=== PATIENT | female | born 1995 | race Caucasian/White ===

== ENCOUNTER 2021-11-23 20:59 | Emergency (ER) | payer OTHER ==
[~2021-11-23] VITALS: Ht 166.4 cm; Wt 62.0 kg
--- NOTE | 2021-11-23 21:54 | PHYS DOC ---
Adult General Chief Complaint Chief Complaint: GENERALIZED BODY ACHES HPI HPI Patient is a 26-year-old female with a past medical history of recent ureterolithiasis, which had to be removed last week who presents with a chief complaint of left flank pain which started earlier today, 7 out of 10, sharp in nature with some nausea. Denies any other recent traumas, travels, illness, fevers, chest pain. Denies any dysuria, hematuria, blood in the stool or diarrhea. Review of Systems Review of Systems Review of systems otherwise unremarkable except noted in HPI Physical Exam Physical Exam Constitutional: Well developed, well nourished, no acute distress, non-toxic appearance. [] HENT: Normocephalic, atraumatic, oropharynx moist, Eyes: conjunctiva normal, no discharge. [] Neck: Normal range of motion, no tenderness, supple, no stridor. [] Cardiovascular:Heart rate regular rhythm, no murmur [] Lungs & Thorax: Bilateral breath sounds clear to auscultation [] Abdomen: soft, no tenderness, no masses, no pulsatile masses. [] Skin: Warm, dry, no erythema, no rash. [] Back: Left CVA tenderness. [] Extremities: No tenderness, no cyanosis, no clubbing, ROM intact, no edema. [] Neurologic: Alert and oriented X 3, no focal deficits noted. [] Psychologic: Affect normal, judgement normal, mood normal. [] EKG EKG [] Radiology/Procedures Radiology/Procedures [] Heart Score C/O Chest Pain: No Risk Factors: Risk Factors: DM, Current or recent (<one month) smoker, HTN, HLP, family history of CAD, obesity. Risk Scores: Risk Factors: DM, Current or recent (<one month) smoker, HTN, HLP, family history of CAD, obesity. Course & Med Decision Making Course & Med Decision Making Patient is a 26-year-old female presents with left flank pain, status post ureterolithiasis last week Vital signs notable for tachycardia and hypertension. Physical exam noted above. Given pain and nausea medicine. Laboratory analysi/urinalysis notable for leukocytosis and urinalysis with possibility of urinary tract infection. Given patient's history started on antibiotics for UTI. Discussed all findings with family. Discussed symptom management at home with pain medicines, nausea medicine and diet/hydration Advised to call their surgeons on-call service to make them aware of their visit and relay the information to their surgeon. Advised to call again first thing Friday morning if they do not hear anything to update on ED visit and set up a follow-up as soon as possible. Gave strict return precautions to the ED. Patient grateful, verbalized understanding and agreed with plan of discharge. [] Dragon Disclaimer Dragon Disclaimer This electronic medical record was generated, in whole or in part, using a voice recognition dictation system. Departure Departure: Impression: Primary Impression: Flank pain Additional Impression: Urinary tract infection Disposition: HOME / SELF CARE / HOMELESS Condition: STABLE Referrals: MARTITA RAUSCH MD (PCP) Patient Instructions: Flank Pain, Urinary Tract Infection Additional Instructions: Thank you for coming into the emergency department tonight and allowing us to take care of you. Please read the attached information carefully to go over things we discussed. Please be sure to take your antibiotics as prescribed and until gone unless otherwise directed by your urologist. Please take your nausea medicine as prescribed over the next couple of days. Please be sure to eat a light clear diet and drink plenty of fluids. It is very important that she get a hold of the surgeon/urologist that did your procedure and make them aware of your ER visit to see if anything else they would like done. Although it is the weekend, they usually have a service that can take a message and relay this to the surgeon. Please take your pain medicine as prescribed as well. Please add ibuprofen, 600 mg every 6 hours. As we discussed, go to the emergency departmen t immediately if you have any of the new or concerning symptoms we talked about. Scripts Ondansetron (ONDANSETRON ODT) 8 Mg Tab.rapdis 8 MG PO Q8HRS for nausea for 7 Days, #21 TAB Prov: LISA GRAY MD 11/23/21 Hydrocodone Bit/Acetaminophen (HYDROCODONE-APAP 5-325 ) 1 Each Tablet 1 TAB PO Q4DAYS PRN for abdominal pain for 7 Days, #20 TAB 0 Refills Prov: LISA GRYA MD 11/23/21 Problem Qualifiers LISA GRAY MD Nov 23, 2021 21:54
[2021-11-23] MEDS ORDERED: ONDANSETRON ODT 4 MG TAB.RAPDIS PO ONE (22:00)
--- NOTE | 2021-11-23 22:17 | RAD ---
Exam: CT of abdomen and pelvis without contrast INDICATION: Left flank pain, history of left kidney stone. Stone removal 11/19/2021 TECHNIQUE: Sequential axial images through the abdomen and pelvis obtained without IV contrast. Sagit ashwini and coronal reformatted images were reconstructed from the axial data and reviewed. Exposure: One or more of the following in the visualized dose reduction techniques were utilized for this examination: 1. Automated exposure control 2. Adjustment of the MA and/or KV according to patient size 3. Use of iterative of reconstructive technique Comparisons: None FINDINGS: Heart size is normal. No pericardial effusion. Visualized lung bases are clear pleural effusion. Evaluation of solid organs limited secondary to noncontrast technique. Liver, spleen, pancreas, gallbladder and adrenals are unremarkable. There is mild left-sided hydronephrosis. There is a cyst at the upper pole of the left kidney with a internal calcified nodule. There is hydroureter down to level the distal ureter without a discrete ur eteral calculus identified. Bladder is partially distended and not well evaluated. Uterus not enlarged. No abnormal adnexal mass. Large and small bowel are unremarkable. Appendix is normal. No free intra-abdominal air or fluid. No obstruction. Abdominal aorta has a normal course and caliber. No enlarged intra-abdominal lymph nodes are identified. No suspicious osseous lesions or acute fractures. IMPRESSION: 1. Mild left-sided hydronephrosis and hydroureter down to level the distal ureter. No ureteral calcu nelly is identified. Findings could relate to stricture. 2. Cystic lesion at the upper pole of the left kidney with a internal calcified nodule incompletely characterized on this study. Electronically signed by: Uzma Courtney MD (11/23/2021 10:14 PM) [facility]
[2021-11-23 23:05] LABS: CALCIUM 9.2 mg/dL (8.5-10.1); CREATININE 0.7 mg/dL (0.6-1.0); POTASSIUM 3.8 mmol/L (3.5-5.1)
[2021-11-23 23:09] LABS: BASO # 0.1 x10^3/uL (0.0-0.2); BASO % 1 % (0-3); EOS % 0 % (0-3); HEMATOCRIT 42.7 % (36.0-47.0); HEMOGLOBIN 14.1 g/dL (12.0-15.5); LYMPH # 1.2 x10^3/uL (1.0-4.8); LYMPH % 11 % (24-48); MEAN CORPUSCULAR HEMOGLOBIN 30 pg (25-35); MEAN CORPUSCULAR HGB CONC 33 g/dL (31-37); MEAN CORPUSCULAR VOLUME 91 fL (79-100); MONO # 1.1 x10^3/uL (0.0-1.1); MONO % 9 % (0-9); NEUT # 9.2 x10^3uL (1.8-7.7); NEUT % 80 % (31-73); PLATELET COUNT 238 x10^3/uL (140-400); RED BLOOD COUNT 4.68 x10^6/uL (3.50-5.40); RED CELL DISTRIBUTION WIDTH 13.1 % (11.5-14.5); WHITE BLOOD COUNT 11.5 x10^3/uL (4.0-11.0)
[2021-11-23 23:11] LABS: CLARITY,URINE CLOUDY; COLOR,URINE YELLOW; GLUCOSE,URINE NEG (NEG)
[2021-11-23 23:12] LABS: BACTERIA,URINE FEW /HPF (0-FEW); NITRITE,URINE NEG (NEG); RBC,URINE >40 /HPF (0-2); SQUAMOUS EPITHELIAL CELL,UR FEW /LPF; UROBILINOGEN,URINE 0.2 mg/dL (0.2 mg/dL)
[2021-11-23] MEDS ORDERED: IV NORMAL SALINE 50ML 50 ML ONE (23:39)
[2021-11-23] MEDS ORDERED: cefTRIAXone SODIUM 1 GM VIAL ONE (23:39)
[2021-11-23] MEDS ORDERED: METOCLOPRAMIDE HCL 10 MG/2 ML VIAL. IVP ONE (23:45)
[2021-11-23] MEDS ORDERED: oxyCODONE/APAP 5/325 1 TAB TABLET PO ONE (23:45)
[2021-11-23] MEDS ORDERED: HYDR-2155 PO (23:46)
[2021-11-23] MEDS ORDERED: ONDA8TAB15 PO (23:46)
[2021-11-24 00:30] VITALS: BP 122/72
[2021-11-24] MEDS ORDERED: CEPH500C PO (00:34)
== END 2021-11-24 00:38 | disposition home or self-care (01) ==
LOC: ER 20:59
DX: N39.0 Urinary tract infection, site not specified (principal)
CPT/HCPCS: 36415; 74176; 80048; 81001; 81025; 85025; 87086; 96365; 96372; 96375; 99284; J0696; J2765; J3010; Q0162